=== PATIENT | female | born 2000 | race Caucasian/White ===

== ENCOUNTER 2021-01-19 18:58 | Inpatient (IN) ==
[2021-01-19 20:48] LABS: Amorphous Crystals,Urine Moderate /HPF (Few); Bacteria,Urine Occasional /HPF (Few); Bilirubin,Urine Negative (Negative); Blood, Urine Negative (Negative); Glucose,Urine (UA) Negative (Negative); Ketones,Urine Negative (Negative); Mucus,Urine Occasional /LPF (Occasional); Nitrite,Urine Negative (Negative); Protein,Urine Negative; Squamous Epithelial Cell,Urine Moderate /HPF (0-10); Urine Appearance CLOUDY (Clear); Urine Color Yellow (Yellow); Urine Specific Gravity 1.009 (1.001-1.035); Urine Urobilinogen < 2.0 EU/DL (0.2-1.0)
[2021-01-19 21:24] LABS: Barbiturates Screen,Urine Negative (Negative); Benzodiazepines Screen,Urine Negative (Negative); Cannabinoid Screen,Urine Negative (Negative); Opiate Screen,Urine Negative (Negative); Phencyclidine Screen,Urine Negative (Negative)
[2021-01-19] MEDS ORDERED: ONDANSETRON 4 MG/2 ML VIAL IV PRN (21:45)
[2021-01-19] MEDS ORDERED: ACETAMINOPHEN 500 MG TABLET PO PRN (21:51)
[2021-01-19] MEDS ORDERED: LACTATED RINGERS 1,000 ML IV SCH (22:00)
[2021-01-20 05:05] LABS: Basophils % 0.3 % (0.0-0.8); Eosinophils # 0.2 10*3/uL (0.0-0.87); Hematocrit 32.2 VOL% (35.7-47.0); Immature Granulocytes % 1.1 %; Immature Granulocytes Absolute 0.17 #; Lymphocytes # 2.8 10*3/uL (1.4-4.0); Lymphocytes % 18.1 % (21.3-54.2); Mean Corpuscular HGB Conc 31.1 GM/DL (32-36); Mean Corpuscular Volume 86.3 FL (87-102); Mean Platelet Volume 10.1 FL (9.6-12.0); Monocytes % 6.2 % (1.7-12.7); Neutrophils % 73.3 % (38.7-73.9); Platelet Count 230 T/CUMM (130-400); Red Blood Count 3.73 MC/CUMM (3.8-5.5); Red Cell Distribution Width 14.2 % (9.3-17.3); White Blood Count 15.6 T/CUMM (4-12)
[2021-01-20] MEDS ORDERED: FAMOTIDINE 20 MG/2 ML VIAL IV ONE (05:22)
[2021-01-20] MEDS ORDERED: ceFAZolin 2,000 MG/50 ML DUPLEX IV ONE (05:22)
[2021-01-20] MEDS ORDERED: CITRIC ACID/SODIUM CITRATE 30 ML UDCUP PO ONE (05:22)
[2021-01-20] MEDS ORDERED: LACTATED RINGERS 1,000 ML IV ONE (05:23)
[2021-01-20 05:34] LABS: Alanine Aminotransferase < 9 U/L (13-56); Albumin 2.5 G/DL (3.4-5.0); Alkaline Phosphatase 95 U/L (45-117); Aspartate Amino Transferase 12 U/L (0-37); Blood Urea Nitrogen 6 MG/DL (7-18); Calcium 8.8 MG/DL (8.5-10.1); Carbon Dioxide 23 MMOL/L (21-32); Estimated Glom Filtration Rate 162 ML/MIN; Glucose 79 MG/DL (74-106); Osmolality,Calculated 277.3 MOS/KG (273-304); Potassium 3.9 MMOL/L (3.5-5.1); Sodium 141 MMOL/L (136-145); Total Protein 6.4 G/DL (6.4-8.2)
[2021-01-20] MEDS ORDERED: SEVOFLURANE 1 UNIT/15 MINUTE INH ONE (07:10)
[2021-01-20] MEDS ORDERED: DEXAMETHASONE 4 MG/1 ML VIAL ONE (07:10)
[2021-01-20] MEDS ORDERED: fentaNYL 100 MCG/2 ML VIAL ONE (07:10)
[2021-01-20] MEDS ORDERED: LIDOCAINE 2% 5 ML VIAL ONE (07:10)
[2021-01-20] MEDS ORDERED: SUCCINYLCHOLINE 200 MG/10 ML VIAL ONE (07:10)
[2021-01-20] MEDS ORDERED: propofoL 200 MG/20 ML VIAL IV ONE (07:10)
[2021-01-20] MEDS ORDERED: MIDAZOLAM 2 MG/2 ML VIAL ONE (07:10)
[2021-01-20] MEDS ORDERED: ONDANSETRON 4 MG/2 ML VIAL ONE (07:10)
[2021-01-20] MEDS ORDERED: ROCURONIUM 50 MG/5 ML VIAL IV ONE (07:10)
[2021-01-20] MEDS ORDERED: ROPIVACAINE 0.5% 30 ML VIAL ONE (07:11)
[2021-01-20] MEDS ORDERED: OXYTOCIN/LR 20 UNIT/1,000 ML BAG IV ONE ×3 (07:21→08:48)
[2021-01-20] MEDS ORDERED: ESMOLOL 100 MG/10 ML VIAL IV ONE (07:38)
[2021-01-20] MEDS ORDERED: METOPROLOL TARTRATE 5 MG/5 ML VIAL IV ONE ×2 (07:42→07:49)
[2021-01-20] MEDS ORDERED: miSOPROStoL 200 MCG TABLET ONE (07:45)
[2021-01-20] MEDS ORDERED: miSOPROStoL 200 MCG TABLET PO ONE (07:45)
[2021-01-20] MEDS ORDERED: CARBOPROST TROMETHAMINE 250 MCG/ML AMP IM ONE ×2 (07:45→07:46)
[2021-01-20] MEDS ORDERED: METHYLERGONOVINE 0.2 MG/1 ML AMP ONE (07:49)
[2021-01-20] MEDS ORDERED: METHYLERGONOVINE 0.2 MG/1 ML AMP IM ONE (07:50)
[2021-01-20] MEDS ORDERED: OXYTOCIN 10 UNIT/ML VIAL ONE (07:52)
[2021-01-20] MEDS ORDERED: PHENYLEPHRINE 1 MG/10 ML SYRINGE IV ONE ×2 (07:56)
[2021-01-20] MEDS ORDERED: NEOSTIGMINE 10 MG/10 ML VIAL ONE (08:12)
[2021-01-20] MEDS ORDERED: SUGAMMADEX 200 MG/2 ML VIAL IV ONE (08:32)
[2021-01-20] MEDS ORDERED: HYDROmorphone 2 MG/1 ML VIAL IV PRN (08:40)
[2021-01-20] MEDS ORDERED: WITCH HAZEL PADS 100/JAR TOP PRN (08:48)
[2021-01-20] MEDS ORDERED: oxyCODONE/ACETAMINOPHEN 5-325 MG TABLET PO PRN (08:48)
[2021-01-20] MEDS ORDERED: BENZOCAINE 20%/MENTHOL 0.5% SPRAY 56 GM CAN TOP PRN (08:48)
[2021-01-20] MEDS ORDERED: BISACODYL 10 MG SUPP RECTAL PRN (08:48)
[2021-01-20] MEDS ORDERED: MEASLES/MUMPS/RUBELLA VACCINE 0.5 ML VIAL SUBCUT ONE (08:48)
[2021-01-20] MEDS ORDERED: RHO(D) IMMUNE GLOBULIN 300 MCG SYRINGE IM ONE (08:48)
[2021-01-20] MEDS ORDERED: HYDROCORTISONE 2.5% RECTAL CREAM 30 GM TUBE TOP PRN (08:48)
[2021-01-20] MEDS ORDERED: IBUPROFEN 800 MG TABLET PO PRN (08:48)
[2021-01-20] MEDS ORDERED: DIPH/TET/ACEL PERT BOOSTER VACCINE 0.5 ML VIAL IM ONE (08:48)
[2021-01-20] MEDS ORDERED: LANOLIN 50% CREAM 0.3 OZ TUBE TOP PRN (08:48)
[2021-01-20] MEDS ORDERED: [UNRECOGNIZED DRUG - REMARK] PO SCH ×2 (08:48→09:00)
[2021-01-20] MEDS ORDERED: ONDANSETRON 4 MG/2 ML VIAL IV PRN (08:48)
[2021-01-20 09:13] LABS: Bilirubin,Urine Negative (Negative); Blood, Urine Negative (Negative); Glucose,Urine (UA) Negative (Negative); Ketones,Urine Negative (Negative); Nitrite,Urine Negative (Negative); Protein,Urine Negative; RBC,Urine <1 /HPF (0-4); Squamous Epithelial Cell,Urine Occasional /HPF (0-10); Urine Appearance CLEAR (Clear); Urine Color Colorless (Yellow); Urine Specific Gravity 1.004 (1.001-1.035); Urine Urobilinogen < 2.0 EU/DL (0.2-1.0)
[2021-01-20 10:08] LABS: Hematocrit 30.4 VOL% (35.7-47.0)
[2021-01-20 10:45] LABS: Thyroid Stimulating Hormone 3.68 uIU/ml (0.358-3.74)
[2021-01-20] MEDS: ACETAMINOPHEN 500 MG TABLET PO SCH (15:58)
[2021-01-20] MEDS: DOCUSATE SODIUM 100 MG CAPSULE PO SCH ×2 (18:09→21:07)
[2021-01-20] MEDS: oxyCODONE/ACETAMINOPHEN 5-325 MG TABLET PO PRN (19:25)
[2021-01-20] MEDS: PROPRANOLOL 10 MG TABLET PO SCH (21:07)
[2021-01-21] MEDS: oxyCODONE/ACETAMINOPHEN 5-325 MG TABLET PO PRN (05:28)
[2021-01-21 05:50] LABS: Basophils # 0.1 10*3/uL (0.0-0.2); Basophils % 0.3 % (0.0-0.8); Eosinophils % 0.1 % (0.00-10.9); Hematocrit 25.3 VOL% (35.7-47.0); Hemoglobin 8.1 GM/DL (12.0-16.0); Immature Granulocytes % 1.1 %; Immature Granulocytes Absolute 0.23 #; Lymphocytes # 3.5 10*3/uL (1.4-4.0); Lymphocytes % 16.1 % (21.3-54.2); Mean Corpuscular Volume 84.6 FL (87-102); Mean Platelet Volume 10.3 FL (9.6-12.0); Monocytes % 6.7 % (1.7-12.7); Neutrophils % 75.7 % (38.7-73.9); Platelet Count 276 T/CUMM (130-400); Red Blood Count 2.99 MC/CUMM (3.8-5.5); Red Cell Distribution Width 13.9 % (9.3-17.3); White Blood Count 21.7 T/CUMM (4-12)
[2021-01-21 06:11] LABS: Band Neutrophils 1 % (0-10); Eosinophils 1 % (0-10); Hypochromasia 1+; Lymphocytes 16 % (20-55); Microcytosis 1+; Platelet Estimate Adequate; Segmented Neutrophils 76 % (50-85); Total Cells Counted 100
[2021-01-21] MEDS: ACETAMINOPHEN 500 MG TABLET PO SCH (06:51)
[2021-01-21] MEDS: MULTIVITAMIN (PRENATAL) TABLET PO SCH (09:46)
[2021-01-21] MEDS: DOCUSATE SODIUM 100 MG CAPSULE PO SCH ×2 (09:46→21:19)
[2021-01-21] MEDS: PROPRANOLOL 10 MG TABLET PO SCH ×3 (09:46→21:19)
[2021-01-21] MEDS: ACETAMINOPHEN 325 MG TABLET PO PRN ×2 (09:49→17:10)
[2021-01-22] MEDS ORDERED: NIFEdipine 10 MG CAPSULE PO ONE (01:03)
[2021-01-22] MEDS: PROPRANOLOL 10 MG TABLET PO SCH (09:07)
[2021-01-22] MEDS: MULTIVITAMIN (PRENATAL) TABLET PO SCH (09:08)
[2021-01-22] MEDS: DOCUSATE SODIUM 100 MG CAPSULE PO SCH (09:08)
== END 2021-01-22 13:57 | disposition home or self-care (01) | DRG 788 ==
LOC: N.LDOUT 18:58 → N.LD 19:02
PROVIDERS: ADMIT Specialist; ATTEND Specialist
PROC: LDCSECT (ICD-10-PCS; 2021-01-20 07:30)